=== PATIENT | female | born 1945 | race African-American/Black ===

== ENCOUNTER 2017-04-17 23:31 | Emergency (ER) | payer OTHER ==
[~2017-04-17] VITALS: Ht 157.5 cm; Wt 113.0 kg
[2017-04-18] MEDS ORDERED: TETANUS, DIPHTHERIA, PERTUSSIS VAC/PF 0.5ML (>7YR OLD) IM ONE (01:00)
[2017-04-18] MEDS ORDERED: ACETAMINOPHEN 325MG TABLET PO STA (01:00)
[2017-04-18] MEDS ORDERED: HYDROCODONE/ACETAMINOPHEN 10/325MG TABLET PO ONE (05:15)
[2017-04-18 06:32] VITALS: BP 145/79
== END 2017-04-18 06:34 | disposition home or self-care (01) ==
LOC: ER 23:31
DX: S42.292A Other displaced fracture of upper end of left humerus, initial encounter for closed fracture (principal); S00.03XA Contusion of scalp, initial encounter; S80.812A Abrasion, left lower leg, initial encounter; S80.811A Abrasion, right lower leg, initial encounter; S00.01XA Abrasion of scalp, initial encounter; E11.9 Type 2 diabetes mellitus without complications; I10 Essential (primary) hypertension; V49.9XXA Car occupant (driver) (passenger) injured in unspecified traffic accident, initial encounter; Y93.89 Activity, other specified; Y99.8 Other external cause status; Y92.410 Unspecified street and highway as the place of occurrence of the external cause
CPT/HCPCS: 70450; 73030; 73060; 73100; 87070; 87205; 90471; 90715; 93005; 99285; A4565